=== PATIENT | female | born 1960 | race Caucasian/White ===

== ENCOUNTER 2023-10-02 18:11 | Inpatient (IN) | payer OTHER, SELFPAY ==
[2023-10-02] VITALS (34 sets, daily range): BP systolic 92–124; BP diastolic 39–89; PULSE 89–115; RESP 12–26; TEMP 37.2; O2SAT 90–100
--- NOTE | ~2023-10-02 | CT_ITS ---
EXAMINATION: CT abdomen pelvis w con DATE: 10/02/2023 20:28 INDICATION: abdominal pain TECHNIQUE: Computed tomography (CT) of the abdomen and pelvis was performed with 100 mL Omnipaque-350 intravenous contrast. Automated exposure control and iterative reconstruction technique were employe d. The dose-length product was 340.97 mGy-cm. COMPARISON: None. FINDINGS: Lower thorax: Bilateral breast implants. Calcified right lower lobe granuloma/hamartoma. Minimal biba silar scar/atelectasis. Liver: Granulomatous calcifications. Biliary/Gallbladder: Gallbladder is normal. No bile duct dilation. Pancreas: Moderate atrophy. Spleen: Granulomatous calcifications. Adrenals:No mass. Kidneys: No suspicious mass, obstructing stone, or hydronephrosis. 4 mm nonobstructing right midpole calcification. GI tract: Mild distal esophageal wall and gastric cardia/fundal wall edema. Small hiatal hernia. Shor t segment mid sigmoid wall thickening with surrounding inflammatory change and an inflamed diverticul um, with a small region of adjacent contained extracolonic gas. No definite abscess. No small or larg e bowel dilation. Normal appendix. Mesentery/Peritoneum: No ascites, mass, or free air. Retroperitoneum: No mass. Pelvis: Bladder wall stranding. Retroverted, otherwise normal-appearing uterus. Normal bilateral ovar ies. Soft Tissues: Soft tissues and body wall unremarkable. Bones: No acute osseous finding. IMPRESSION: Mild esophagitis/gastritis. Acute sigmoid diverticulitis, complicated by contained perforation. Cystitis versus reactive inflammation from the adjacent diverticulitis. No definite fistulous tract i dentified. Correlate with urinalysis. Reviewed, dictated and finalized at location K. [employer] IMPRESSION: Mild esophagitis/gastritis. Acute sigmoid diverticulitis, complicated by contained perforation. Cystitis versus reactive inflammation from the adjacent diverticulitis. No defi nite fistulous tract identified. Correlate with urinalysis.
--- NOTE | 2023-10-02 19:26 | ED.GENADULT ---
HPI - General Adult General Chief complaint: Abdominal Pain Stated complaint: abd pain Time Seen by Provider: 10/02/23 19:06 History of Present Illness HPI narrative: patient is 63-year-old female who presents emergency department with chief complaint of abdominal pain. Patient reports that she has uncomfortable feeling throughout her entire abdomen but reports that it is worse in the lower quadrants of her abdomen. The patient reports she has tried to have a bowel movement and had a normal one yesterday has taken some Colace without improvement in her symptoms. The patient reports no prior abdominal surgeries reports no prior episodes similar to this reports that she has had no dysuria denies flank. Related Data Home Medications Medication Instructions Recorded Confirmed No Home Medications 10/02/23 Allergies Allergy/AdvReac Type Severity Reaction Status Date / Time hydrocodone AdvReac Vomiting Verified 10/02/23 19:30 Review of Systems Review of Systems: A 10 system review of systems was completed on the patient and is negative except for what is stated in the HPI. Nursing and ancillary documentation was reviewed. Exam Narrative: GENERAL: Well-appearing, well-nourished, and in no acute distress. HEAD: Normocephalic, atraumatic. EYES: PERRLA and EOMI. ENT: Nares clear, no rhinorrhea or epistaxis. Mucous membranes moist. NECK: Supple. CHEST: Clear to auscultation. No respiratory distress. HEART: Regular rate and rhythm. No murmur heard. Normal peripheral pulses. ABDOMEN: Soft, Tenderness to palpation left lower quadrant, nondistended, normal active bowel sounds. EXTREMITIES: Normal range of motion. No edema. SKIN: Warm, dry, no rash. NEURO: No focal deficits. Alert and oriented x3. PSYCH: Normal mood and affect. Course Vital Signs Vital signs: Vital Signs Temperature 37.2 C 10/02/23 18:23 Pulse Rate 100 10/02/23 18:23 Respiratory Rate 16 10/02/23 18:23 Blood Pressure 119/71 10/02/23 18:23 Pulse Oximetry 98 10/02/23 18:23 Oxygen Delivery Room Air 10/02/23 18:23 Temperature 37.2 C 10/02/23 18:23 Pulse Rate 100 10/02/23 18:23 Respiratory Rate 16 10/02/23 18:23 Blood Pressure 119/71 10/02/23 18:23 Pulse Oximetry 98 10/02/23 18:23 Oxygen Delivery Room Air 10/02/23 18:23 Medical Decision Making MDM Narrative Medical decision making narrative: differential diagnosis includes diverticulitis, colitis, appendicitis, pancreatitis laboratory studies were obtained on the patient which showed a white count of 18.7 electrolytes were obtained which showed normal renal function with BUN 14 creatinine 0.7 total bilirubin was 2.1 AST and ALT were normal lipase was normal CT scan of the abdomen pelvis showed Mild esophagitis/gastritis. Acute sigmoid diverticulitis, complicated by contained perforation. Cystitis versus reactive inflammation from the adjacent diverticulitis. No definite fistulous tract identified. Correlate with urinalysis. the patient was started on Zosyn case discussed with surgery and hospitalist Vital Signs Vital Signs: Vital Signs Temperature 37.2 C 10/02/23 18:23 Pulse Rate 100 10/02/23 18:23 Respiratory Rate 16 10/02/23 18:23 Blood Pressure 119/71 10/02/23 18:23 Pulse Oximetry 98 10/02/23 18:23 Oxygen Delivery Room Air 10/02/23 18:23 Temperature 37.2 C 10/02/23 18:23 Pulse Rate 100 10/02/23 18:23 Respiratory Rate 16 10/02/23 18:23 Blood Pressure 119/71 10/02/23 18:23 Pulse Oximetry 98 10/02/23 18:23 Oxygen Delivery Room Air 10/02/23 18:23 Lab Data 10/02/23 19:29 10/02/23 19:29 Labs: Lab Results 10/02/23 Range/Units 19:29 WBC 18.7 H (4.5-10.0) K/mm3 RBC 4.10 L (4.2-5.4) M/mm3 Hgb 12.5 (12.0-15.0) g/dL Hct 37.4 (37.0-47.0) % MCV 91.2 (80-100) fl MCH 30.5 (26-34) pg MCHC 33.4 (32-36) g/dl RDW 12.2 (1
[2023-10-02] MEDS: SODIUM CHLORIDE 0.9% IV 1,000 ML 999 ML IV CONT (19:31)
[2023-10-02] MEDS: ONDANSETRON INJ 4 MG/2 ML VIAL IV PUSH ×2 (19:31→21:51)
[2023-10-02] MEDS: MORPHINE SULFATE (*CRX) 4 MG/ML INJ IV PUSH ×2 (19:33→21:51)
[2023-10-02 19:46] LABS: Basophils Percent Auto 0.2 % (0.2-1.2); Hematocrit 37.4 % (37.0-47.0); Hemoglobin 12.5 g/dL (12.0-15.0); Immature Granulocyte Absolute 0.07 K/mm3 (0.00-0.031); Immature Granulocyte Percent A 0.4 % (0-0.5); Lymphocytes Absolute Auto 0.86 K/mm3 (0.9-3.2); Lymphocytes Percent Auto 4.6 % (18.3-44.2); Mean Corpuscular HGB Conc 33.4 g/dl (32-36); Mean Corpuscular Hemoglobin 30.5 pg (26-34); Mean Corpuscular Volume 91.2 fl (80-100); Mean Platelet Volume 11.1 fl (7.4-10.4); Monocytes Absolute Auto 0.8 K/mm3 (0.1-0.6); Monocytes Percent Auto 4.2 % (2.6-8.5); Neutrophils Percent Auto 90.6 % (45.5-73.1); Platelet Count Result 226 k/mm3 (150-375); Red Cell Distribution Width 12.2 % (11.5-14.5); White Blood Count 18.7 K/mm3 (4.5-10.0)
[2023-10-02 20:01] LABS: Alanine Aminotransferase 21 U/L (6-35); Albumin Level 4.8 g/dL (3.5-5.1); Alkaline Phosphatase 85 U/L (38-126); Anion Gap 14 mmol/L (8-16); Aspartate Amino Transferase 27 U/L (14-36); Bilirubin,Total 2.1 mg/dL (0.2-1.3); Blood Urea Nitrogen 14 mg/dL (7-17); Carbon Dioxide 21 mmol/L (22-30); Chloride 101 mmol/L (98-107); Estimated CRCL calculation 63 ml/min; Estimated Glomerular Filt Rate > 60; Glucose 112 mg/dL (65-110); Lipase 26 U/L (23-300); Potassium 3.4 mmol/L (3.4-5.0); Sodium 136 mmol/L (137-145)
[2023-10-02] MEDS: PIPERACILLN/TAZ 3.375GM/NS50ML 3.375 GM/50 ML BAG IVPB (21:37)
--- NOTE | 2023-10-02 21:38 | PC.NURSE ---
blood cultures x 2 and ua collected prior to starting abx.
[2023-10-02 22:06] LABS: Appearance Urine Clear (Clear); Bacteria Urine None Seen /hpf; Bilirubin Urine Negative (Negative); Blood Urine 3+ (Negative); Color Urine Yellow (Yellow); Glucose Urine UA Negative (Negative); Ketones Urine 1+ mg/dL (Negative); Leukocyte Esterase Ur Negative LEU/UL (Negative); Need Manual Microscopic Reviewed; Nitrate Urine Negative (Negative); Non Pathogenic Casts 0-2; Protein Urine 1+ mg/dL (Negative); RBC Urine 21-50 /hpf (0-2); Squamous Epithelial Cell Urine None seen /hpf (Few); WBC Urine 0-5 /hpf
[2023-10-02 22:13] LABS: Add Urine Microscopic? YES
[2023-10-02] MEDS: SODIUM CHLORIDE 0.9% IV 1,000 ML 125 ML IV CONT (23:11)
--- NOTE | 2023-10-02 23:11 | PM.IMHP ---
H&P: HPI History of Present Illness Date/Time: 10/02/23 23:11 Chief Complaint: Abdominal pain Narrative: This is a 63-year-old female with no prior medical history presenting with abdominal pain 1 day prior to admission. [place] uncomfortable feeling throughout her entire abdomen worse in the lower quadrants and felt she was backed up as well. She drank a lot of water and was given Colace by the and she had dark loose stools. She has had no vomiting or nausea. Denies fevers or chills or chest pain or shortness of breath. She had some issue with her belly 15 years ago but was never hospitalized and can not remember what it was about. She is only ever been hospitalized when she had each of her 3 children. Review of Systems Review of Systems: All systems reviewed & are unremarkable except as noted in HPI and below (Subjective) Meds Home Medications and Allergies Home Medications Medication Instructions Recorded Confirmed Type No Home Medications 10/02/23 History Allergies Allergy/AdvReac Type Severity Reaction Status Date / Time hydrocodone AdvReac Vomiting Verified 10/02/23 19:30 Vital Signs Vital Signs - 24 hr 10/02/23 18:23 Temperature 98.9 F Pulse Rate 100 Respiratory Rate 16 Blood Pressure 119/71 Pulse Oximetry 98 Oxygen Delivery Room Air Exam Const: General: comfortable and no acute distress Other: A&O x3. Accompanied by spouse HENMT: Mouth: Yes dry mucous membranes Eyes: Pupils: Equal, round and reactive pupils present Neck: Neck: supple Resp: Effort & Inspection: normal respiratory effort Auscultation: clear to auscultation bilaterally Cardio: Rate: regular rate Rhythm: regular rhythm GI: Inspection: non-distended GI Palp: Yes Soft to palpation and No Tenderness to palpation present (GI) Auscultation: normal bowel sounds Extrem: General: no edema H&P: Results Labs Labs: Short CBC 10/02/23 Range/Units 19:29 WBC 18.7 H (4.5-10.0) K/mm3 Hgb 12.5 (12.0-15.0) g/dL Hct 37.4 (37.0-47.0) % Plt Count 226 (150-375) k/mm3 [facility] 10/02/23 19:29 Sodium 136 L Potassium 3.4 Chloride 101 Carbon Dioxide 21 L BUN 14 Creatinine 0.70 Glucose 112 H Calcium 10.0 Liver Function 10/02/23 Range/Units 19:29 Total Bilirubin 2.1 H (0.2-1.3) mg/dL AST 27 (14-36) U/L ALT 21 (6-35) U/L Alkaline Phosphatase 85 (38-126) U/L Albumin 4.8 (3.5-5.1) g/dL Urine 10/02/23 Range/Units 21:37 Urine Color Yellow (Yellow) Urine Appearance Clear (Clear) Urine pH 5.0 (5.0-9.0) Ur Specific [place] 1.020 (1.001-1.035) Urine Protein 1+ H (Negative) mg/dL Urine Glucose (UA) Negative (Negative) mg/dL Assessment and Plan Assessment and plan (1) Perforation of sigmoid colon due to diverticulitis: Code(s): K57.20 - Diverticulitis of large intestine with perforation and abscess without bleeding Status: Acute Plan This is a 63-year-old female with no prior medical history presenting with abdominal pain 1 day prior to admission. [place] uncomfortable feeling throughout her entire abdomen worse in the lower quadrants and felt she was backed up as well. She drank a lot of water and was given Colace by the and she had dark loose stools. She has had no vomiting or nausea. Denies fevers or chills or chest pain or shortness of breath. She had some issue with her belly 15 years ago but was never hospitalized and can not remember what it was about. She is only ever been hospitalized when she had each of her 3 children. In [place] ER her white count 18.7, microscopic hematuria on the UA, CT abdomen pelvis with contrast demonstrating mild esophagitis/gastritis, acute sigmoid diverticulitis complicated by contained perforation and cystitis versus reactive inflammation. She was given 1 L normal saline bolus, morphine 4 mg IV x2, Zofran 4 mg IV x2, and 1 dose of Zosyn. ---
[2023-10-02] MEDS: PANTOPRAZOLE SODIUM IV 40 MG VIAL IV PUSH (23:23)
--- NOTE | 2023-10-02 23:48 | ADMGEN ---
This patient, Ele Whitman, was admitted to 3 [facility] Surg Room 304-02. Patient/family oriented to hospital policies and general routines including ID bracelet, bed and alarms, visiting hours, pain management, procedures, bathroom and other care routines, personal items, smoking policy, room service/diet, and visiting hours. Information on how to activate the Rapid Response Team has been discussed. Patient/Family are encouraged to report perceived risks to care and to ask questions if they do not understand what they are told or what they should do.
[2023-10-03 00:20] VITALS: BP 116/63; PULSE 119; RESP 18; TEMP 36.8; O2SAT 97
[2023-10-03] MEDS: PIPERACILLN/TAZ 3.375GM/NS50ML 3.375 GM/50 ML BAG IVPB ×4 (02:25→23:24)
[2023-10-03 04:35] VITALS: BP 111/56; PULSE 87; RESP 18; TEMP 35.9; O2SAT 99
[2023-10-03] MEDS: MORPHINE SULFATE (*CRX) 4 MG/ML INJ IV PUSH (05:10)
[2023-10-03 06:28] LABS: Basophils Percent Auto 0.1 % (0.2-1.2); Eosinophils Percent Auto 0.1 % (0-4.4); Hematocrit 30.1 % (37.0-47.0); Hemoglobin 9.8 g/dL (12.0-15.0); Immature Granulocyte Absolute 0.07 K/mm3 (0.00-0.031); Immature Granulocyte Percent A 0.5 % (0-0.5); Lymphocytes Absolute Auto 0.87 K/mm3 (0.9-3.2); Lymphocytes Percent Auto 5.7 % (18.3-44.2); Mean Corpuscular HGB Conc 32.6 g/dl (32-36); Mean Corpuscular Hemoglobin 30.2 pg (26-34); Mean Corpuscular Volume 92.9 fl (80-100); Mean Platelet Volume 11.4 fl (7.4-10.4); Monocytes Absolute Auto 0.8 K/mm3 (0.1-0.6); Monocytes Percent Auto 5.3 % (2.6-8.5); Neutrophils Absolute Auto 13.5 K/mm3 (1.3-6.7); Neutrophils Percent Auto 88.3 % (45.5-73.1); Platelet Count Result 166 k/mm3 (150-375); Red Blood Count 3.24 M/mm3 (4.2-5.4); Red Cell Distribution Width 12.4 % (11.5-14.5); White Blood Count 15.3 K/mm3 (4.5-10.0)
[2023-10-03 06:43] LABS: Alanine Aminotransferase 14 U/L (6-35); Albumin Level 3.3 g/dL (3.5-5.1); Alkaline Phosphatase 72 U/L (38-126); Anion Gap 6 mmol/L (8-16); Aspartate Amino Transferase 22 U/L (14-36); Bilirubin,Total 1.9 mg/dL (0.2-1.3); Blood Urea Nitrogen 11 mg/dL (7-17); Calcium 8.2 mg/dL (8.4-10.2); Carbon Dioxide 22 mmol/L (22-30); Chloride 106 mmol/L (98-107); Estimated CRCL calculation 63 ml/min; Estimated Glomerular Filt Rate > 60; Glucose 100 mg/dL (65-110); Potassium 3.3 mmol/L (3.4-5.0); Sodium 134 mmol/L (137-145)
[2023-10-03] MEDS: SODIUM CHLORIDE 0.9% IV 1,000 ML 125 ML IV CONT (07:45)
[2023-10-03] MEDS: PANTOPRAZOLE SODIUM IV 40 MG VIAL IV PUSH (07:46)
[2023-10-03] MEDS: ENOXAPARIN 40 MG/0.4 ML SYRINGE SUB-Q (08:55)
[2023-10-03] MEDS: KCL 20 MEQ/D5/0.9% SOD CHL 1,000 ML 125 ML IV CONT ×2 (08:55→17:45)
[2023-10-03] MEDS: IBUPROFEN IV 800 MG/200 ML 800 MG/200 ML BAG 400 MG IVPB ×3 (08:55→21:21)
--- NOTE | 2023-10-03 09:44 | PM.CNGS ---
Assessment and Plan Assessment and plan (1) Perforation of sigmoid colon due to diverticulitis: Code(s): K57.20 - Diverticulitis of large intestine with perforation and abscess without bleeding Status: Acute Assessment and Plan: There is CT evidence of acute sigmoid diverticulitis with contained perforation. No organized abscess seen on CT. WBC trending down this morning. No diffuse peritoneal signs on exam. I discussed the pathophysiology of diverticulitis along with plan of care with the patient. At this time, we would recommend to continue conservative management with IV antibiotics, bowel rest, IV fluids, and analgesics. Potassium low at 3.3 this morning, and IV fluids switched to have 20 meq KCL. I discussed with the patient that typically this improves with IV antibiotics, but we will continue to monitor with labs and serial abdominal exams. Plan I have discussed the patient's case and plan of care with Dr. Orr. Thank you for allowing us to see the patient in consultation and we will continue to follow along with you. History of Present Illness Consult details Consult date: 10/03/23 Reason for consult: other Requesting physician: Juan Pablo Oliva MD Narrative: This is a 63-year-old woman who we have been asked to see for diverticulitis with perforation. She reports an onset of lower abdominal pain starting two days ago. She reports associated bloating and feels swollen in her lower abdomen. She had nausea yesterday, but no vomiting. No fever or chills. No changes in her bowels. Due to her persistent pain, she presented to the ER for evaluation. She was tachycardic in the ER with her heart rate as high as 115, but otherwise afebrile and hemodynamically stable. Labs showed a WBC count of 18,700. Blood cultures drawn. CT scan of the abdomen and pelvis showed acute sigmoid diverticulitis with contained perforation and no organized abscess. She was admitted to the Hospitalist service and started on IV Zosyn. She is now seen on the medical floor. She reports her pain has improved and she is mostly uncomfortable due to her bloating. WBC improved today to 15,300. Tachycardia improved and remains afebrile. She denies a history of diverticulitis. No previous abdominal surgeries. She had a normal Cologuard test a few years ago, but denies ever having a colonoscopy. Review of Systems Review of Systems: All systems reviewed & are unremarkable except as noted in HPI and below PMFSH Family History Family History Other Patient denies significant medical history Social History Social History Smoking status: Never smoker Alcohol intake: never Substance use: never Do You Feel Safe in your Home?: Yes Lack of Transportation: No Lack of Food: Never True Current Housing: I Have Housing Concerned About Future Housing: No Difficulty Paying Gas/Electric Bills: No Difficulty Paying for Meds: No Currently Unemployed: No Education: High School Diploma/GED Difficulty w/ Childcare or Family Care: No Spiritual care concerns: No Meds Home Medications and Allergies Home Medications Medication Instructions Recorded Confirmed Type No Home Medications 10/02/23 10/02/23 History Allergies Allergy/AdvReac Type Severity Reaction Status Date / Time hydrocodone AdvReac Vomiting Verified 10/02/23 19:30 Vital Signs Vital Signs - 24 hr 10/02/23 18:23 10/02/23 23:30 10/02/23 18:53 Temperature 98.9 F Pulse Rate 100 90 92 Respiratory Rate 16 18 16 Blood Pressure 119/71 116/67 Pulse Oximetry 98 98 100 Oxygen Delivery Room Air 10/02/23 19:00 10/02/23 19:15 10/02/23 19:20 Temperature Pulse Rate 93 93 101 H Respiratory Rate 16 15 21 H Blood Pressure 99/89 L Pulse Oximetry 99 100 99 Oxygen Delivery 10/02/23 19:30 10/02/23 19:31 10/02/23 19:45 Temperature
--- NOTE | 2023-10-03 10:00 | PM.IMPN ---
Progress Note: A&P Assessment and Plan (1) Perforation of sigmoid colon due to diverticulitis: Code(s): K57.20 - Diverticulitis of large intestine with perforation and abscess without bleeding Status: Acute Assessment and Plan: Patient presented with lower quadrant abdominal pain; she has had no prior abdominal surgeries and has no significnat past medical history CT a/p showed acute sigmoid diverticulitis with contained perforation. No organized abscess seen on CT Surgery consulted, we appreciate their recommendations WBC trending down this morning Follow blood culture She has no peritoneal signs on exam Continue IV Zosyn Continue IV PPI NPO IV fluids Pain control as necessary Continue to monitor labs; Replete electrolytes as needed Plan FEN:? NPO except chips, normal saline continuous GI prophylaxis:? Protonix 40 mg IV q.day DVT prophylaxis:? SCDs Lines:? Peripheral IV Code Status:? Full code Subjective Date/time seen: 10/03/23 10:00 Interval history: Patient is resting comfortably in bed this morning. She endorses lower quadrant abdominal pain, worse on the RLQ and abdominal swelling/bloating in the lower quadrants. Denies nausea, vomiting, chest pain, shortness of breath, leg swelling, or urinary symptoms. Exam Narrative: GENERAL: Well-appearing, well-nourished, and in no acute distress. HEAD: Normocephalic, atraumatic. EYES: PERRLA and EOMI. ENT: Nares clear, no rhinorrhea or epistaxis. Mucous membranes moist. NECK: Supple. CHEST: Clear to auscultation. No respiratory distress. HEART: Regular rate and rhythm. No murmur heard. Normal peripheral pulses. ABDOMEN: Soft, Tenderness to palpation left and right lower quadrant (worse on the right), nondistended, normal active bowel sounds. EXTREMITIES: Normal range of motion. No edema. SKIN: Warm, dry, no rash. NEURO: No focal deficits. Alert and oriented x3. PSYCH: Normal mood and affect. Objective Data Vital Signs Vital Signs: Vital Signs - 24 hr 10/02/23 18:23 10/02/23 23:30 10/02/23 18:53 Temperature 98.9 F Pulse Rate 100 90 92 Respiratory Rate 16 18 16 Blood Pressure 119/71 116/67 Pulse Oximetry 98 98 100 Oxygen Delivery Room Air 10/02/23 19:00 10/02/23 19:15 10/02/23 19:20 Temperature Pulse Rate 93 93 101 H Respiratory Rate 16 15 21 H Blood Pressure 99/89 L Pulse Oximetry 99 100 99 Oxygen Delivery 10/02/23 19:30 10/02/23 19:31 10/02/23 19:45 Temperature Pulse Rate 96 92 89 Respiratory Rate 19 16 21 H Blood Pressure 124/62 112/74 Pulse Oximetry 100 100 99 Oxygen Delivery 10/02/23 19:46 10/02/23 20:00 10/02/23 20:01 Temperature Pulse Rate 93 90 90 Respiratory Rate 20 13 14 Blood Pressure 120/39 L Pulse Oximetry 97 100 97 Oxygen Delivery 10/02/23 20:13 10/02/23 20:28 10/02/23 20:30 Temperature Pulse Rate 96 115 H 105 H Respiratory Rate 19 19 18 Blood Pressure 114/54 L Pulse Oximetry 98 98 99 Oxygen Delivery 10/02/23 20:45 10/02/23 21:00 10/02/23 21:15 Temperature Pulse Rate 108 H 108 H 109 H Respiratory Rate 26 H 23 H 17 Blood Pressure Pulse Oximetry 98 95 Oxygen Delivery 10/02/23 21:37 10/02/23 21:42 10/02/23 21:45 Temperature Pulse Rate 105 H 110 H 100 Respiratory Rate 26 H 15 19 Blood Pressure 112/40 L 116/57 L Pulse Oximetry Oxygen Delivery 10/02/23 21:46 10/02/23 22:00 10/02/23 22:01 Temperature Pulse Rate 102 H 107 H 104 H Respiratory Rate 17 24 H 22 H Blood Pressure 98/45 L Pulse Oximetry 96 96 Oxygen Delivery 10/02/23 22:15 10/02/23 22:16 10/02/23 22:30 Temperature Pulse Rate 103 H 106 H 103 H Respiratory Rate 14 14 18 Blood Pressure 92/57 L 112/60 Pulse Oximetry 97 93 90 Oxygen Delivery 10/02/23 22:31 10/02/23 22:45 10/02/23 22:46 Temperature Pulse Rate 105 H 102 H 102 H Respiratory Rate 20 22 H 23 H Blood Pressure 108/59 L Pulse Oximetry 90 93 95 Oxygen D
[2023-10-03 14:00] VITALS: BP 92/49; PULSE 64; RESP 18; TEMP 36.3; O2SAT 100
[2023-10-03 16:43] VITALS: BP 98/52
[2023-10-03 17:52] VITALS: BP 96/60
[2023-10-03 20:40] VITALS: BP 96/55; PULSE 80; RESP 20; TEMP 36.7; O2SAT 99
[2023-10-04] VITALS (7 sets, daily range): BP systolic 92–117; BP diastolic 50–67; PULSE 57–68; RESP 14–20; TEMP 36.1–36.9; O2SAT 98–100
[2023-10-04] MEDS: IBUPROFEN IV 800 MG/200 ML 800 MG/200 ML BAG 400 MG IVPB ×4 (01:13→20:40)
[2023-10-04] MEDS: PIPERACILLN/TAZ 3.375GM/NS50ML 3.375 GM/50 ML BAG IVPB ×4 (02:53→22:54)
[2023-10-04] MEDS: KCL 20 MEQ/D5/0.9% SOD CHL 1,000 ML 125 ML IV CONT ×2 (06:21→13:39)
[2023-10-04] MEDS: MORPHINE SULFATE (*CRX) 2 MG/ML INJ IV PUSH (06:26)
--- NOTE | 2023-10-04 06:55 | PC.NURSE ---
Pt woke up this morning with c/o SOB. Vitals were obtained and stable. Pt was given 2mg Morphine. Pt was transferred to chair by bedside with daughter. Continued monitoring.
[2023-10-04 07:08] LABS: Hematocrit 28.2 % (37.0-47.0); Hemoglobin 8.8 g/dL (12.0-15.0); Mean Corpuscular HGB Conc 31.2 g/dl (32-36); Mean Corpuscular Hemoglobin 29.8 pg (26-34); Mean Corpuscular Volume 95.6 fl (80-100); Mean Platelet Volume 11.4 fl (7.4-10.4); Platelet Count Result 158 k/mm3 (150-375); Red Blood Count 2.95 M/mm3 (4.2-5.4); Red Cell Distribution Width 12.4 % (11.5-14.5); White Blood Count 6.5 K/mm3 (4.5-10.0)
[2023-10-04 07:28] LABS: Anion Gap 5 mmol/L (8-16); Blood Urea Nitrogen 9 mg/dL (7-17); Carbon Dioxide 22 mmol/L (22-30); Chloride 113 mmol/L (98-107); Estimated CRCL calculation 63 ml/min; Estimated Glomerular Filt Rate > 60; Glucose 127 mg/dL (65-110); Potassium 3.6 mmol/L (3.4-5.0); Sodium 140 mmol/L (137-145)
[2023-10-04] MEDS: PANTOPRAZOLE SODIUM IV 40 MG VIAL IV PUSH (10:00)
[2023-10-04] MEDS: ENOXAPARIN 40 MG/0.4 ML SYRINGE SUB-Q (10:00)
--- NOTE | 2023-10-04 11:15 | PM.IMPN ---
Progress Note: A&P Assessment and Plan (1) Perforation of sigmoid colon due to diverticulitis: Code(s): K57.20 - Diverticulitis of large intestine with perforation and abscess without bleeding <Sue Murphy, Student - Last Filed: 10/04/23 12:16> Status: Acute <Sue Murphy, Student - Last Filed: 10/04/23 12:16> Assessment and Plan: Patient presented with lower quadrant abdominal pain; she has had no prior abdominal surgeries and has no significant past medical history CT a/p showed acute sigmoid diverticulitis with contained perforation. No organized abscess seen on CT Surgery consulted, we appreciate their recommendations WBC trending down this morning Prelim blood culture shows NGTD She has no peritoneal signs on exam Continue IV Zosyn and IV PPI Start clear liquid diet with IV fluids Pain control as necessary PT/OT Patient is +2700 on fluid balance on 3/4 and receiving IV fluids from medications and hydration, it does not seem she is urinating appropriately; order bladder scan Follow-up with general surgery recs <Sue Murphy, Student - Last Filed: 10/04/23 12:16> Patient presented with lower quadrant abdominal pain; she has had no prior abdominal surgeries and has no significant past medical history CT a/p showed acute sigmoid diverticulitis with contained perforation. No organized abscess seen on CT Surgery consulted, we appreciate their recommendations WBC trending down this morning Prelim blood culture shows NGTD She has no peritoneal signs on exam Continue IV Zosyn and IV PPI Start clear liquid diet with IV fluids Pain control as necessary PT/OT Patient is +2700 on fluid balance on 3/4 and receiving IV fluids from medications and hydration, it does not seem she is urinating appropriately; order bladder scan Follow-up with general surgery recs watch cbc and BMP <Allison Schwartz MD - Last Filed: 10/04/23 12:46> (2) Memory impairment: Code(s): R41.3 - Other amnesia <Sue Murphy, Student - Last Filed: 10/04/23 12:16> Status: Chronic <Sue Murphy, Student - Last Filed: 10/04/23 12:16> Assessment and Plan: Order delirium panel b12 tsh folate thiamine, esr Can consult Neurology for memory impairment <Allison Schwartz MD - Last Filed: 10/04/23 12:46> Assessment and Plan: FEN:? NPO except chips, normal saline continuous GI prophylaxis:? Protonix 40 mg IV q.day DVT prophylaxis:? SCDs Lines:? Peripheral IV Code Status:? Full code <Sue Murphy, Student - Last Filed: 10/04/23 12:16> Subjective Date/time seen: 10/04/23 11:15 <Sue Murphy, Student - Last Filed: 10/04/23 12:16> Interval history: Patient sitting up in her chair this morning. She reports sudden increase in abdominal pressure and swelling that is worse when she is laying down. States it feels like there is too much fluid in her abdomen and it has moved up toward her chest so it difficult to catch her breath when she was laying flat. Her breathing and pain improved when she sat up in her chair. She denies nausea or vomiting. Patient also denies chest pain or urinary symptoms. <Sue Murphy, Student - Last Filed: 10/04/23 12:16> Patient sitting up in her chair this morning. She reports sudden increase in abdominal pressure and swelling that is worse when she is laying down. States it feels like there is too much fluid in her abdomen and it has moved up toward her chest so it difficult to catch her breath when she was laying flat. Her breathing and pain improved when she sat up in her chair. She denies nausea or vomiting. Patient also denies chest pain or urinary symptoms. Pt admitted for diverticulitis with perforation ct shows no abscess, pt having some abdominal pain and bloating improved since admission. Family also concerned about his memory declining over past few months. Pt seen by surgery cont
--- NOTE | 2023-10-04 12:14 | PM.PNGS ---
Progress Note: A&P Assessment and Plan (1) Perforation of sigmoid colon due to diverticulitis: Code(s): K57.20 - Diverticulitis of large intestine with perforation and abscess without bleeding Status: Acute Assessment and Plan: Patient has gotten quite a bit more anemic relative to her admission CBC. H&H down to 8.8 and 28.2. Initially it was 12.5 and 37.4. WBC now down in normal range but expect some of this is due to dilutional factors as well. Discussed with the family and patient that there is no evidence that she is bleeding and the drop in hemoglobin and hematocrit are most likely due to the IV fluids she has received and dilutional FX. Overall, she is less tender, her white blood cell count is decreased, she has been afebrile. These are all signs she is improving and I explained that to her and her family. Continue NPO except coffee and popsicles, ice chips. Possibly start clear liquid diet tomorrow with continues to improve. Continue ambulation which she has been doing. (2) Memory impairment: Code(s): R41.3 - Other amnesia Status: Chronic Assessment and Plan: Patient's family very concerned about this and says patient will not admitted or discuss it. Will discuss with Dr. Schwartz, hospitalist. Subjective Subjective Date/Time Seen: 10/04/23 12:14 Patient reports: still having pain (Possibly a little less than yesterday), voiding w/o difficulty, no bowel movement and afebrile Interval history: Main patient complaint is ?swelling? of the abdomen which started in the pubic area and went all the way up to her lower chest. She notes that this is usually very flat but now feels very thickened. Review of Systems Review of Systems: All systems reviewed & are unremarkable except as noted in HPI and below (HPI) Constitutional: Constitutional: Reports as per HPI, Denies anorexia, Denies chills, Reports fatigue, Denies fever(s) and Reports lethargy Cardiovascular: Cardiovascular: Denies chest pain, Denies rapid heart rate, Denies leg edema and Reports slow heart rate Respiratory: Respiratory: Denies chest congestion, Denies cough and Denies dyspnea Gastrointestinal: Gastrointestinal: Reports abdominal pain, Reports bloating (More like swelling or edema), Reports constipation, Denies nausea and Denies vomiting Neurologic: Reports memory loss (Family tells me that for the last 2 years patient has had noticeable loss ) Psychiatric: Psychiatric: Denies confusion Hematologic/Lymphatic: Hematologic/Lymphatic: Denies easy bleeding and Denies easy bruising Exam Const: General: comfortable and no acute distress Orientation/consciousness: patient oriented x3 GI: Inspection: normal to inspection, non-distended, scaphoid and scar GI Palp: Yes Soft to palpation, Yes Tenderness to palpation present (GI) (Both lower quadrants, equal tenderness, less than yesterday) and Yes Guarding due to palpation present (GI) Auscultation: Hypoactive bowel sounds present Neuro: General: patient oriented x3 and no focal motor deficits Extrem: General: no calf tenderness and no edema Psych: Speech and movement: Clear speech present Affect: Blunted affect present Attitude: cooperative Thought process: Other thought process findings present (Forgetful, dulled) Thought content: Yes Normal thought content present Insight: Good insight present (Psych) Judgement: Good judgement present (Psych) Objective Data Vital Signs Vital Signs: Vital Signs - 24 hr 10/03/23 14:00 10/03/23 16:43 10/03/23 17:52 Temperature 36.3 C L Pulse Rate 64 Respiratory Rate 18 Blood Pressure 92/49 L 98/52 L 96/60 L Pulse Oximetry 100 Oxygen Delivery 10/03/23 20:00 10/03/23 20:40 10/04/23 05:00 Temperature 36.7 C 36.1 C L Pulse Rate 80 61 Respiratory Rate 20 18 Blood Pressure 96/55 L 92/50 L Pulse Oximetry 99 98 Oxygen Delivery Room Air 10/04/23 06:52 10/04/23 09:00 10/04/23 08:00 Temperature 36.9
[2023-10-05] MEDS: IBUPROFEN IV 800 MG/200 ML 800 MG/200 ML BAG 400 MG IVPB ×4 (01:56→20:34)
[2023-10-05] MEDS: PIPERACILLN/TAZ 3.375GM/NS50ML 3.375 GM/50 ML BAG IVPB ×4 (03:39→20:37)
[2023-10-05 04:55] VITALS: BP 110/62; PULSE 54; RESP 20; TEMP 36.8; O2SAT 96
[2023-10-05] MEDS: KCL 20 MEQ/D5/0.9% SOD CHL 1,000 ML 125 ML IV CONT (06:30)
[2023-10-05 06:34] LABS: Hematocrit 31.9 % (37.0-47.0); Hemoglobin 10.1 g/dL (12.0-15.0); Mean Corpuscular HGB Conc 31.7 g/dl (32-36); Mean Corpuscular Hemoglobin 30.3 pg (26-34); Mean Corpuscular Volume 95.8 fl (80-100); Mean Platelet Volume 11.9 fl (7.4-10.4); Platelet Count Result 212 k/mm3 (150-375); Red Blood Count 3.33 M/mm3 (4.2-5.4); Red Cell Distribution Width 12.3 % (11.5-14.5); White Blood Count 6.1 K/mm3 (4.5-10.0)
[2023-10-05 07:06] LABS: Anion Gap 9 mmol/L (8-16); Blood Urea Nitrogen 6 mg/dL (7-17); Calcium 8.7 mg/dL (8.4-10.2); Carbon Dioxide 21 mmol/L (22-30); Chloride 112 mmol/L (98-107); Estimated CRCL calculation 63 ml/min; Estimated Glomerular Filt Rate > 60; Glucose 112 mg/dL (65-110); Potassium 3.2 mmol/L (3.4-5.0); Sodium 142 mmol/L (137-145)
[2023-10-05 07:37] LABS: Erythrocyte Sedimentation Rate > 140 mm/hr (0-20)
[2023-10-05 08:00] VITALS: PULSE 61; RESP 18; O2SAT 100
[2023-10-05 08:23] LABS: Vitamin B12 > 1000.0 pg/mL (239-931)
[2023-10-05] MEDS: ENOXAPARIN 40 MG/0.4 ML SYRINGE SUB-Q (08:40)
[2023-10-05] MEDS: PANTOPRAZOLE SODIUM IV 40 MG VIAL IV PUSH (08:40)
[2023-10-05 09:25] LABS: Folic Acid 18.5 ng/mL (2.76->20)
--- NOTE | 2023-10-05 11:17 | PM.IMPN ---
Progress Note: A&P Assessment and Plan (1) Memory impairment: Code(s): R41.3 - Other amnesia Status: Chronic Assessment and Plan: Order delirium panel b12 tsh folate thiamine, esr Can consult Neurology for memory impairment TSh is high will start low dose levothyroxine (2) Perforation of sigmoid colon due to diverticulitis: Code(s): K57.20 - Diverticulitis of large intestine with perforation and abscess without bleeding Status: Acute Assessment and Plan: Patient presented with lower quadrant abdominal pain; she has had no prior abdominal surgeries and has no significant past medical history CT a/p showed acute sigmoid diverticulitis with contained perforation. No organized abscess seen on CT Surgery consulted, continue conservative management WBC is NL now Prelim blood culture shows NGTD She has no peritoneal signs on exam Continue IV Zosyn and IV PPI Pain control as necessary PT/OT Pt not tolerating ice chips well continue to watch Advance diet tomorrow watch cbc and BMP Nutrition consulted for dietary advice Subjective Date/time seen: 10/05/23 11:17 Interval history: Patient sitting up in her chair this morning. She reports sudden increase in abdominal pressure and swelling that is worse when she is laying down. States it feels like there is too much fluid in her abdomen and it has moved up toward her chest so it difficult to catch her breath when she was laying flat. Her breathing and pain improved when she sat up in her chair. She denies nausea or vomiting. Patient also denies chest pain or urinary symptoms. Pt admitted for diverticulitis with perforation ct shows no abscess, pt having some abdominal pain and bloating improved since admission. Family also concerned about his memory declining over past few months. Pt seen by surgery continue current care, conservative management with IV fluids and IV abx. Pt still on ice chips and popsicles having some abdominal discomfit with this Review of Systems Review of Systems: Abdominal discomfort Objective Data Vital Signs Vital Signs: Vital Signs - 24 hr 10/04/23 14:00 10/04/23 20:50 10/04/23 20:00 Temperature 36.5 C 36.2 C L Pulse Rate 68 57 L 68 Respiratory Rate 18 20 18 Blood Pressure 104/53 L 117/67 Pulse Oximetry 98 100 98 Oxygen Delivery Room Air 10/05/23 04:55 Temperature 36.8 C Pulse Rate 54 L Respiratory Rate 20 Blood Pressure 110/62 Pulse Oximetry 96 Oxygen Delivery Intake/Output Intake/Output: Intake & Output 10/02/23 10/03/23 10/04/23 10/05/23 23:59 23:59 23:59 23:59 Intake Total 1050 2900 4220 440 Output Total 200 100 Balance 1050 2700 4120 440 Meds/Results Medications: Active Medications Generic Name Dose Route Start Last Admin Trade Name Freq PRN Reason Stop Dose Admin Acetaminophen 650 mg 10/02/23 22:03 Acetaminophen 325 Mg Tablet PO Q4H PRN Mild Pain (1-3) or Fever Enoxaparin Sodium 40 mg 10/03/23 09:00 10/05/23 08:40 Enoxaparin 40 Mg/0.4 Ml Syringe SUB-Q 40 mg DAILY GUSTAVO Administration Piperacillin/Tazobactam/Dextrose 3.375 gm in 50 mls @ 100 mls/hr 10/03/23 03:00 10/05/23 06:19 Zosyn 3.375 Gm/Ns 50 Ml IVPB Infused Q6H GUSTAVO Infusion Ibuprofen 800 mg in 200 mls @ 400 mls/hr 10/03/23 08:00 10/05/23 08:40 Caldolor 800 Mg/200 Ml IVPB 400 mls/hr Q6H GUSTAVO Administration Potassium Chloride/Dextrose/Sod Cl 1,000 mls @ 80 mls/hr 10/03/23 08:10 10/05/23 06:30 Kcl 20 Meq/D5/0.9% Sod Chl IV CONT 125 mls/hr .[id number] GUSTAVO Administration Morphine Sulfate 4 mg 10/02/23 22:03 10/03/23 05:10 Morphine Sulfate (*Crx) 4 Mg/Ml Inj IV PUSH 4 mg Q2H PRN Administration Pain Rated 7-10 Morphine Sulfate 2 mg 10/03/23 08:05 10/04/23 06:26 Morphine Sulfate (*Crx) 2 Mg/Ml Inj IV PUSH 2 mg Q2H PRN Administration Pain Rated 4-6 Ondansetron HCl 4 mg 10/02/23 22:03 Ondansetron Inj 4 Mg/
--- NOTE | 2023-10-05 12:08 | PM.PNGS ---
Progress Note: A&P Assessment and Plan (1) Perforation of sigmoid colon due to diverticulitis: Code(s): K57.20 - Diverticulitis of large intestine with perforation and abscess without bleeding Status: Acute Assessment and Plan: Clinically improving. Abdominal pain significantly improved and no tenderness on exam today. WBC normal. H/H trended down after admission significantly to 8.8 yesterday, but is up at 10.1 today. Likely related to dilutional factors. Still no evidence of bleeding. Will start her on a clear liquid diet. Continue IV antibiotics. Repeat labs again tomorrow. (2) Memory impairment: Code(s): R41.3 - Other amnesia Status: Chronic Assessment and Plan: Concerns voiced from family yesterday, no family at the bedside today. Plan I have discussed the patient's case and plan of care with Dr. Orr. Subjective Subjective Date/Time Seen: 10/05/23 12:08 Patient reports: feels better, flatus, bowel movement and afebrile Interval history: Patient feeling better today. She denies any abdominal pain this morning, but still feels very bloated which is uncomfortable. No nausea or vomiting. She did have one loose BM today. No other complaints at this time. Exam Const: General: comfortable and no acute distress Orientation/consciousness: patient oriented x3 GI: Inspection: non-distended GI Palp: Yes Soft to palpation, No Tenderness to palpation present (GI), No Guarding due to palpation present (GI) and No Rebound tenderness present Auscultation: normal bowel sounds Objective Data Vital Signs Vital Signs: Vital Signs - 24 hr 10/04/23 14:00 10/04/23 20:50 10/04/23 20:00 Temperature 97.7 F 97.1 F L Pulse Rate 68 57 L 68 Respiratory Rate 18 20 18 Blood Pressure 104/53 L 117/67 Pulse Oximetry 98 100 98 Oxygen Delivery Room Air 10/05/23 04:55 Temperature 98.2 F Pulse Rate 54 L Respiratory Rate 20 Blood Pressure 110/62 Pulse Oximetry 96 Oxygen Delivery Intake/Output Intake/Output: Intake & Output 10/02/23 10/03/23 10/04/23 10/05/23 23:59 23:59 23:59 23:59 Intake Total 1050 2900 4220 440 Output Total 200 100 Balance 1050 2700 4120 440 Meds/Results Medications: Active Medications Generic Name Dose Route Start Last Admin Trade Name Freq PRN Reason Stop Dose Admin Acetaminophen 650 mg 10/02/23 22:03 Acetaminophen 325 Mg Tablet PO Q4H PRN Mild Pain (1-3) or Fever Enoxaparin Sodium 40 mg 10/03/23 09:00 10/05/23 08:40 Enoxaparin 40 Mg/0.4 Ml Syringe SUB-Q 40 mg DAILY GUSTAVO Administration Piperacillin/Tazobactam/Dextrose 3.375 gm in 50 mls @ 100 mls/hr 10/03/23 03:00 10/05/23 09:45 Zosyn 3.375 Gm/Ns 50 Ml IVPB 100 mls/hr Q6H GUSTAVO Administration Ibuprofen 800 mg in 200 mls @ 400 mls/hr 10/03/23 08:00 10/05/23 08:40 Caldolor 800 Mg/200 Ml IVPB 400 mls/hr Q6H GUSTAVO Administration Potassium Chloride/Dextrose/Sod Cl 1,000 mls @ 80 mls/hr 10/03/23 08:10 10/05/23 06:30 Kcl 20 Meq/D5/0.9% Sod Chl IV CONT 125 mls/hr .[id number] GUSTAVO Administration Levothyroxine Sodium 25 mcg 10/06/23 06:30 Levothyroxine Sodium 25 Mcg Tablet PO DAILY@0630 [facility] Morphine Sulfate 4 mg 10/02/23 22:03 10/03/23 05:10 Morphine Sulfate (*Crx) 4 Mg/Ml Inj IV PUSH 4 mg Q2H PRN Administration Pain Rated 7-10 Morphine Sulfate 2 mg 10/03/23 08:05 10/04/23 06:26 Morphine Sulfate (*Crx) 2 Mg/Ml Inj IV PUSH 2 mg Q2H PRN Administration Pain Rated 4-6 Ondansetron HCl 4 mg 10/02/23 22:03 Ondansetron Inj 4 Mg/2 Ml Vial IV PUSH Q4H PRN Nausea Pantoprazole Sodium 40 mg 10/02/23 23:10 10/05/23 08:40 Pantoprazole Sodium Iv 40 Mg Vial IV PUSH 40 mg DAILY GUSTAVO Administration Potassium Chloride 40 meq 10/06/23 09:00 Potassium Chloride 20 Meq Packet (For Liquid) PO DAILY [facility] Radiology Results: ITS Impressions Abdomen/Pelvis CT 10/02/23 20:43 IMPRESSION: Mil
--- NOTE | 2023-10-05 12:56 | P.CONNEU_ITS ---
Consult date: 10/05/23 HPI: Ele Whitman is a 63 year old female admitted to the hospital through the emergency room with the complaints of abdominal pain particularly more so in the lower quadrants and not relieved by the BM an old with no history of the previous surgeries subsequently diagnosed to have the perforation of the sigmoid colon due to diverticulitis of the large intestine neuro consultation has been obtained for the memory dysfunction, pertinent investigations include only the CBC with hemoglobin of 10.1 WBC 6.1 and a platelet count of 212 with MCH of 30.3 BMP with low potassium 3.2 and UA negative she has not had any neurological investigation otherwise except B12 and folate levels have been ordered along with the TSH [facility] Family History Family History Other Patient denies significant medical history Social History Social History Smoking status: Never smoker Alcohol intake: never Substance use: never Do You Feel Safe in your Home?: Yes Lack of Transportation: No Lack of Food: Never True Current Housing: I Have Housing Concerned About Future Housing: No Difficulty Paying Gas/Electric Bills: No Difficulty Paying for Meds: No Currently Unemployed: No Education: High School Diploma/GED Difficulty w/ Childcare or Family Care: No Spiritual care concerns: No Meds Home Medications and Allergies Home Medications Medication Instructions Recorded Confirmed Type No Home Medications 10/02/23 10/02/23 History Allergies Allergy/AdvReac Type Severity Reaction Status Date / Time hydrocodone AdvReac Vomiting Verified 10/02/23 19:30 Vital Signs Vital Signs - 24 hr 10/04/23 14:00 10/04/23 20:50 10/04/23 20:00 Temperature 36.5 C 36.2 C L Pulse Rate 68 57 L 68 Respiratory Rate 18 20 18 Blood Pressure 104/53 L 117/67 Pulse Oximetry 98 100 98 Oxygen Delivery Room Air 10/05/23 04:55 Temperature 36.8 C Pulse Rate 54 L Respiratory Rate 20 Blood Pressure 110/62 Pulse Oximetry 96 Oxygen Delivery Results Labs 10/05/23 05:49 10/05/23 05:49 Labs: Short CBC 10/05/23 Range/Units 05:49 WBC 6.1 (4.5-10.0) K/mm3 Hgb 10.1 L (12.0-15.0) g/dL Hct 31.9 L (37.0-47.0) % Plt Count 212 (150-375) k/mm3 [facility] 10/05/23 05:49 Sodium 142 Potassium 3.2 L Chloride 112 H Carbon Dioxide 21 L BUN 6 L Creatinine 0.70 Glucose 112 H Calcium 8.7
[2023-10-05 14:00] VITALS: BP 118/61; PULSE 61; RESP 18; TEMP 36.6; O2SAT 100
[2023-10-05 21:02] VITALS: BP 135/66; PULSE 57; RESP 20; TEMP 36.8; O2SAT 99
[2023-10-06] MEDS: KCL 20 MEQ/D5/0.9% SOD CHL 1,000 ML 125 ML IV CONT (01:54)
[2023-10-06] MEDS: IBUPROFEN IV 800 MG/200 ML 800 MG/200 ML BAG 400 MG IVPB (01:55)
[2023-10-06] MEDS: PIPERACILLN/TAZ 3.375GM/NS50ML 3.375 GM/50 ML BAG IVPB ×4 (03:51→22:23)
[2023-10-06 05:20] VITALS: BP 141/71; PULSE 57; RESP 20; TEMP 36.9; O2SAT 96
[2023-10-06] MEDS: LEVOTHYROXINE SODIUM 25 MCG TABLET PO (06:05)
[2023-10-06 06:53] LABS: Hematocrit 28.5 % (37.0-47.0); Hemoglobin 9.3 g/dL (12.0-15.0); Mean Corpuscular HGB Conc 32.6 g/dl (32-36); Mean Corpuscular Hemoglobin 30.4 pg (26-34); Mean Corpuscular Volume 93.1 fl (80-100); Mean Platelet Volume 11.9 fl (7.4-10.4); Platelet Count Result 193 k/mm3 (150-375); Red Blood Count 3.06 M/mm3 (4.2-5.4); Red Cell Distribution Width 12.4 % (11.5-14.5); White Blood Count 4.9 K/mm3 (4.5-10.0)
[2023-10-06 07:07] LABS: Anion Gap 4 mmol/L (8-16); Blood Urea Nitrogen 4 mg/dL (7-17); Calcium 8.5 mg/dL (8.4-10.2); Carbon Dioxide 23 mmol/L (22-30); Chloride 113 mmol/L (98-107); Estimated CRCL calculation 63 ml/min; Estimated Glomerular Filt Rate > 60; Glucose 106 mg/dL (65-110); Potassium 3.5 mmol/L (3.4-5.0); Sodium 140 mmol/L (137-145)
--- NOTE | 2023-10-06 08:26 | PM.PNGS ---
Progress Note: A&P Assessment and Plan (1) Perforation of sigmoid colon due to diverticulitis: Code(s): K57.20 - Diverticulitis of large intestine with perforation and abscess without bleeding Status: Acute Assessment and Plan: Doing much better. Will advance to low-fiber diet. Saline lock IV. Increase ambulation. Hopefully patient can be discharged tomorrow. (2) Memory impairment: Code(s): R41.3 - Other amnesia Status: Chronic Assessment and Plan: TSH elevated. Explained to patient and yesterday that this could be the problem with her memory issues. Already started on thyroid supplement per Dr. Schwartz. Subjective Subjective Date/Time Seen: 10/06/23 08:26 Patient reports: feels better, pain is less, tolerating liquids well, voiding w/o difficulty, bowel movement and afebrile Review of Systems Review of Systems: All systems reviewed & are unremarkable except as noted in HPI and below (HPI) Exam Const: General: comfortable and no acute distress Orientation/consciousness: patient oriented x3 GI: Inspection: Abdominal wall edema and non-distended GI Palp: Yes Soft to palpation, Yes Tenderness to palpation present (GI) (Nearly gone), No Guarding due to palpation present (GI), No Hernia present, No Palpable mass present and No Rebound tenderness present Auscultation: normal bowel sounds Neuro: General: patient oriented x3 and no focal motor deficits Extrem: General: no calf tenderness and no edema Psych: Affect: normal affect Insight: Good insight present (Psych) Judgement: Good judgement present (Psych) Objective Data Vital Signs Vital Signs: Vital Signs - 24 hr 10/05/23 14:00 10/05/23 20:00 10/05/23 21:02 Temperature 36.6 C 36.8 C Pulse Rate 61 57 L Respiratory Rate 18 20 Blood Pressure 118/61 135/66 Pulse Oximetry 100 99 Oxygen Delivery Room Air 10/06/23 05:20 Temperature 36.9 C Pulse Rate 57 L Respiratory Rate 20 Blood Pressure 141/71 H Pulse Oximetry 96 Oxygen Delivery Intake/Output Intake/Output: Intake & Output 10/03/23 10/04/23 10/05/23 10/06/23 23:59 23:59 23:59 23:59 Intake Total 2900 4220 2548 100 Output Total 200 100 Balance 2700 4120 2548 100 Meds/Results Medications: Active Medications Generic Name Dose Route Start Last Admin Trade Name Freq PRN Reason Stop Dose Admin Enoxaparin Sodium 40 mg 10/03/23 09:00 10/05/23 08:40 Enoxaparin 40 Mg/0.4 Ml Syringe SUB-Q 40 mg DAILY GUSTAVO Administration Famotidine 20 mg 10/06/23 09:00 Famotidine 20 Mg Tablet PO Q12HR GUSTAVO Piperacillin/Tazobactam/Dextrose 3.375 gm in 50 mls @ 100 mls/hr 10/03/23 03:00 10/06/23 03:51 Zosyn 3.375 Gm/Ns 50 Ml IVPB 100 mls/hr Q6H GUSTAVO Administration Ibuprofen 600 mg 10/06/23 08:25 Ibuprofen 600 Mg Tablet PO Q6H PRN Pain Rated 1-3 Levothyroxine Sodium 25 mcg 10/06/23 06:30 10/06/23 06:05 Levothyroxine Sodium 25 Mcg Tablet PO 25 mcg DAILY@0630 GUSTAVO Administration Morphine Sulfate 2 mg 10/06/23 08:19 Morphine Sulfate (*Crx) 2 Mg/Ml Inj IV PUSH Q2H PRN Pain Rated 7-10 Potassium Chloride 40 meq 10/06/23 09:00 Potassium Chloride 20 Meq Packet (For Liquid) PO DAILY GUSTAVO Tramadol HCl 50 mg 10/06/23 08:17 Tramadol Hcl (*Crx) 50 Mg Tablet PO Q4H PRN Pain Rated 4-6 Radiology Results: ITS Impressions Abdomen/Pelvis CT 10/02/23 20:43 IMPRESSION: Mild esophagitis/gastritis. Acute sigmoid diverticulitis, complicated by contained perforation. Cystitis versus reactive inflammation from the adjacent diverticulitis. No definite fistulous tract identified. Correlate with urinalysis. Labs Labs: Laboratory Results - last 24 hr 10/05/23 10/06/23 05:49 06:20 WBC 4.9 RBC 3.06 L Hgb 9.3 L Hct 28.5 L MCV 93.1 MCH 30.4 MCHC 32.6 RDW 12.4 Plt Count 193 MPV 11.9 H Sodium 140 Potassium 3.5 Chlori
[2023-10-06] MEDS: POTASSIUM CHLORIDE 20 MEQ PACKET (FOR LIQUID) 40 MEQ PO (08:48)
[2023-10-06] MEDS: FAMOTIDINE 20 MG TABLET PO ×2 (08:55→22:23)
[2023-10-06] MEDS: ENOXAPARIN 40 MG/0.4 ML SYRINGE SUB-Q (08:55)
--- NOTE | 2023-10-06 12:38 | PM.IMPN ---
Progress Note: A&P Assessment and Plan (1) Memory impairment: Code(s): R41.3 - Other amnesia Status: Chronic Assessment and Plan: Order delirium panel b12 tsh folate thiamine, esr Can consult Neurology for memory impairment TSH is high will start low dose levothyroxine Pt explained that she will need to follow in PCP for rpt TSH in 4 weeks time (2) Perforation of sigmoid colon due to diverticulitis: Code(s): K57.20 - Diverticulitis of large intestine with perforation and abscess without bleeding Status: Acute Assessment and Plan: Patient presented with lower quadrant abdominal pain; she has had no prior abdominal surgeries and has no significant past medical history CT a/p showed acute sigmoid diverticulitis with contained perforation. No organized abscess seen on CT Surgery consulted, continue conservative management WBC is NL now Prelim blood culture shows NGTD She has no peritoneal signs on exam Continue IV Zosyn and IV PPI Pain control as necessary PT/OT watch cbc and BMP Nutrition consulted for dietary advice Pt tolerating clear liquid diet Hopeful DC roger am Subjective Date/time seen: 10/06/23 12:38 Interval history: Patient sitting up in her chair this morning. She reports sudden increase in abdominal pressure and swelling that is worse when she is laying down. States it feels like there is too much fluid in her abdomen and it has moved up toward her chest so it difficult to catch her breath when she was laying flat. Her breathing and pain improved when she sat up in her chair. She denies nausea or vomiting. Patient also denies chest pain or urinary symptoms. Pt admitted for diverticulitis with perforation ct shows no abscess, pt having some abdominal pain and bloating improved since admission. Family also concerned about his memory declining over past few months. Pt seen by surgery continue current care, conservative management with IV fluids and IV abx. Pt doing better today sitting up in the bed no complaints of abdominal pain tolerating clear liquid diet Review of Systems Review of Systems: Abdominal discomfort resolved All systems reviewed & are unremarkable except as noted in HPI and below (Subjective) Exam Const: General: comfortable and no acute distress Other: A&O x3. Accompanied by spouse HENMT: Mouth: Yes dry mucous membranes Eyes: Pupils: Equal, round and reactive pupils present Neck: Neck: supple Resp: Effort & Inspection: normal respiratory effort Auscultation: clear to auscultation bilaterally Cardio: Rate: regular rate Rhythm: regular rhythm GI: Inspection: non-distended Auscultation: normal bowel sounds Neuro: Cranial nerves: Yes Equal, round and reactive pupils present Extrem: General: no edema Objective Data Vital Signs Vital Signs: Vital Signs - 24 hr 10/05/23 14:00 10/05/23 20:00 10/05/23 21:02 Temperature 36.6 C 36.8 C Pulse Rate 61 57 L Respiratory Rate 18 20 Blood Pressure 118/61 135/66 Pulse Oximetry 100 99 Oxygen Delivery Room Air 10/06/23 05:20 10/06/23 09:00 Temperature 36.9 C Pulse Rate 57 L Respiratory Rate 20 Blood Pressure 141/71 H Pulse Oximetry 96 Oxygen Delivery Room Air Intake/Output Intake/Output: Intake & Output 10/03/23 10/04/23 10/05/23 10/06/23 23:59 23:59 23:59 23:59 Intake Total 2900 4220 2548 318 Output Total 200 100 Balance 2700 4120 2548 318 Meds/Results Medications: Active Medications Generic Name Dose Route Start Last Admin Trade Name Moisésq PRN Reason Stop Dose Admin Enoxaparin Sodium 40 mg 10/03/23 09:00 10/06/23 08:55 Enoxaparin 40 Mg/0.4 Ml Syringe SUB-Q 40 mg DAILY GUSTAVO Administration Famotidine 20 mg 10/06/23 09:00 10/06/23 08:55 Famotidine 20 Mg Tablet PO 20 mg Q12HR GUSTAVO Administration Piperacillin/Tazobactam/Dextrose 3.375 gm in 50 mls @ 100 mls/hr 10/03/23 03:00 10/06/23 09:19 Zosyn 3.3
--- NOTE | 2023-10-06 13:08 | WPDNEUROPN ---
Progress Note: A&P Assessment and Plan (1) Memory impairment: Code(s): R41.3 - Other amnesia Status: Chronic (2) Perforation of sigmoid colon due to diverticulitis: Code(s): K57.20 - Diverticulitis of large intestine with perforation and abscess without bleeding Status: Acute Plan Most likely mild metabolic encephalopathy showing improvement patient has had mild perforation of the bowel for BC is being seen by the surgery. A serum B12 folic acid levels were within normal range. On bedside memory test she seems to be doing fairly well and has I would suggest that if there is a concern about like to see her for follow-up in my office in 6 weeks time. Time Spent With Patient Time with patient: less than 15 minutes Subjective Date/time seen: 10/06/23 13:08 Interval history: Patient admitted with abdominal pain and was noted to have some tendency to get mixed up. Dr. Mckoy has seen her. I noted that she is doing much better and in fact she did working at [employer] prior to getting sick. She feels that the abdomen problem has been going on for a while and she was told that sometimes the infection can also lead to be getting mixed up. She lives with the . The patient is right-handed. She had no difficulty with activity the daily living. Her TSH was found to be slightly high at 8.0 and be treated for the same. Her hemoglobin is also low at 9.3. Exam Narrative: She appears in fair spirits. No aphasia or dysarthria. Examination mental status and memory appeared within acceptable normal limits. Normal motor strength in the limbs. No involuntary movements. Objective Data Vital Signs Vital Signs: Vital Signs - 24 hr 10/05/23 14:00 10/05/23 20:00 10/05/23 21:02 Temperature 36.6 C 36.8 C Pulse Rate 61 57 L Respiratory Rate 18 20 Blood Pressure 118/61 135/66 Pulse Oximetry 100 99 Oxygen Delivery Room Air 10/06/23 05:20 10/06/23 09:00 Temperature 36.9 C Pulse Rate 57 L Respiratory Rate 20 Blood Pressure 141/71 H Pulse Oximetry 96 Oxygen Delivery Room Air Intake/Output Intake/Output: Intake & Output 10/03/23 10/04/23 10/05/23 10/06/23 23:59 23:59 23:59 23:59 Intake Total 2900 4220 2548 318 Output Total 200 100 Balance 2700 4120 2548 318 Meds/Results Medications: Active Medications Generic Name Dose Route Start Last Admin Trade Name Freq PRN Reason Stop Dose Admin Enoxaparin Sodium 40 mg 10/03/23 09:00 10/06/23 08:55 Enoxaparin 40 Mg/0.4 Ml Syringe SUB-Q 40 mg DAILY GUSTAVO Administration Famotidine 20 mg 10/06/23 09:00 10/06/23 08:55 Famotidine 20 Mg Tablet PO 20 mg Q12HR GUSTAVO Administration Piperacillin/Tazobactam/Dextrose 3.375 gm in 50 mls @ 100 mls/hr 10/03/23 03:00 10/06/23 09:19 Zosyn 3.375 Gm/Ns 50 Ml IVPB Infused Q6H GUSTAVO Infusion Ibuprofen 600 mg 10/06/23 08:25 Ibuprofen 600 Mg Tablet PO Q6H PRN Pain Rated 1-3 Levothyroxine Sodium 25 mcg 10/06/23 06:30 10/06/23 06:05 Levothyroxine Sodium 25 Mcg Tablet PO 25 mcg DAILY@0630 GUSTAVO Administration Morphine Sulfate 2 mg 10/06/23 08:19 Morphine Sulfate (*Crx) 2 Mg/Ml Inj IV PUSH Q2H PRN Pain Rated 7-10 Potassium Chloride 40 meq 10/06/23 09:00 10/06/23 08:48 Potassium Chloride 20 Meq Packet (For Liquid) PO 40 meq DAILY GUSTAVO Administration Tramadol HCl 50 mg 10/06/23 08:17 Tramadol Hcl (*Crx) 50 Mg Tablet PO Q4H PRN Pain Rated 4-6 Radiology Results: ITS Impressions Abdomen/Pelvis CT 10/02/23 20:43 IMPRESSION: Mild esophagitis/gastritis. Acute sigmoid diverticulitis, complicated by contained perforation. Cystitis versus reactive inflammation from the adjacent diverticulitis. No definite fistulous tract identified. Correlate with urinalysis. Labs Labs: Laboratory Results - last 24 hr 10/06/23 06:20 WBC 4.9 RBC 3.06 L Hgb 9.3 L Hct 28.5 L MCV 93.1 MCH
[2023-10-06 14:00] VITALS: BP 131/60; PULSE 62; RESP 18; TEMP 36.5; O2SAT 100
--- NOTE | 2023-10-06 14:13 | PCDIET ---
Pt was educated on a low fiber diet on 10/05/23. Followed up today for an further questions. Pt reports no questions or concerns, has handout on table.
[2023-10-06 20:00] VITALS: O2SAT 100
[2023-10-06 20:35] VITALS: BP 148/60; PULSE 50; RESP 18; TEMP 36.6; O2SAT 97
[2023-10-07] MEDS: PIPERACILLN/TAZ 3.375GM/NS50ML 3.375 GM/50 ML BAG IVPB ×2 (02:11→09:16)
[2023-10-07 05:05] VITALS: BP 125/68; PULSE 58; RESP 16; TEMP 36.6; O2SAT 94
[2023-10-07] MEDS: LEVOTHYROXINE SODIUM 25 MCG TABLET PO (05:53)
[2023-10-07 06:24] LABS: Hematocrit 31.6 % (37.0-47.0); Hemoglobin 10.5 g/dL (12.0-15.0); Mean Corpuscular HGB Conc 33.2 g/dl (32-36); Mean Corpuscular Hemoglobin 30.4 pg (26-34); Mean Corpuscular Volume 91.6 fl (80-100); Mean Platelet Volume 11.9 fl (7.4-10.4); Platelet Count Result 232 k/mm3 (150-375); Red Blood Count 3.45 M/mm3 (4.2-5.4); Red Cell Distribution Width 12.1 % (11.5-14.5); White Blood Count 7.9 K/mm3 (4.5-10.0)
[2023-10-07 06:48] LABS: Anion Gap 9 mmol/L (8-16); Blood Urea Nitrogen 5 mg/dL (7-17); Calcium 9.2 mg/dL (8.4-10.2); Carbon Dioxide 26 mmol/L (22-30); Chloride 108 mmol/L (98-107); Estimated CRCL calculation 63 ml/min; Estimated Glomerular Filt Rate > 60; Glucose 88 mg/dL (65-110); Potassium 3.4 mmol/L (3.4-5.0); Sodium 143 mmol/L (137-145)
--- NOTE | 2023-10-07 08:21 | PM.PNGS ---
Progress Note: A&P Assessment and Plan (1) Perforation of sigmoid colon due to diverticulitis: Code(s): K57.20 - Diverticulitis of large intestine with perforation and abscess without bleeding Status: Acute Assessment and Plan: Much improved. Okay to discharge from my standpoint. Needs 3 more days of Augmentin. Stay on low-fiber diet. I will see her in the office in 2 weeks. She will need a colonoscopy in 4-6 weeks. (2) Hypothyroidism (acquired): Code(s): E03.9 - Hypothyroidism, unspecified Status: Acute Assessment and Plan: Already seems to be better with initiation of thyroid supplement. Post discharge treatment per hospitalist. Subjective Subjective Date/Time Seen: 10/07/23 08:21 Patient reports: feels better, pain is less, tolerating a regular diet (Low-fiber diet), bowel movement and afebrile Review of Systems Review of Systems: All systems reviewed & are unremarkable except as noted in HPI and below (HPI) Exam Const: General: comfortable and no acute distress Orientation/consciousness: patient oriented x3 GI: Inspection: normal to inspection, no edema, non-distended and scaphoid GI Palp: Yes Soft to palpation, No Tenderness to palpation present (GI), No Guarding due to palpation present (GI) and No Rebound tenderness present Auscultation: normal bowel sounds Neuro: General: patient oriented x3 and no focal motor deficits Extrem: General: no calf tenderness and no edema Psych: Affect: normal affect Insight: Good insight present (Psych) Judgement: Good judgement present (Psych) Objective Data Vital Signs Vital Signs: Vital Signs - 24 hr 10/06/23 09:00 10/06/23 14:00 10/06/23 20:00 Temperature 36.5 C Pulse Rate 62 Respiratory Rate 18 Blood Pressure 131/60 Pulse Oximetry 100 100 Oxygen Delivery Room Air Room Air 10/06/23 20:35 10/07/23 05:05 Temperature 36.6 C 36.6 C Pulse Rate 50 L 58 L Respiratory Rate 18 16 Blood Pressure 148/60 H 125/68 Pulse Oximetry 97 94 Oxygen Delivery Intake/Output Intake/Output: Intake & Output 10/04/23 10/05/23 10/06/23 10/07/23 23:59 23:59 23:59 23:59 Intake Total 4220 2548 778 150 Output Total 100 Balance 4120 2548 778 150 Meds/Results Medications: Active Medications Generic Name Dose Route Start Last Admin Trade Name Freq PRN Reason Stop Dose Admin Enoxaparin Sodium 40 mg 10/03/23 09:00 10/06/23 08:55 Enoxaparin 40 Mg/0.4 Ml Syringe SUB-Q 40 mg DAILY GUSTAVO Administration Famotidine 20 mg 10/06/23 09:00 10/06/23 22:23 Famotidine 20 Mg Tablet PO 20 mg Q12HR GUSTAVO Administration Piperacillin/Tazobactam/Dextrose 3.375 gm in 50 mls @ 100 mls/hr 10/03/23 03:00 10/07/23 02:41 Zosyn 3.375 Gm/Ns 50 Ml IVPB Infused Q6H GUSTAVO Infusion Ibuprofen 600 mg 10/06/23 08:25 Ibuprofen 600 Mg Tablet PO Q6H PRN Pain Rated 1-3 Levothyroxine Sodium 25 mcg 10/06/23 06:30 10/07/23 05:53 Levothyroxine Sodium 25 Mcg Tablet PO 25 mcg DAILY@0630 GUSTAVO Administration Morphine Sulfate 2 mg 10/06/23 08:19 Morphine Sulfate (*Crx) 2 Mg/Ml Inj IV PUSH Q2H PRN Pain Rated 7-10 Potassium Chloride 40 meq 10/06/23 09:00 10/06/23 08:48 Potassium Chloride 20 Meq Packet (For Liquid) PO 40 meq DAILY GUSTAVO Administration Tramadol HCl 50 mg 10/06/23 08:17 Tramadol Hcl (*Crx) 50 Mg Tablet PO Q4H PRN Pain Rated 4-6 Radiology Results: ITS Impressions Abdomen/Pelvis CT 10/02/23 20:43 IMPRESSION: Mild esophagitis/gastritis. Acute sigmoid diverticulitis, complicated by contained perforation. Cystitis versus reactive inflammation from the adjacent diverticulitis. No definite fistulous tract identified. Correlate with urinalysis. Labs Labs: Laboratory Results - last 24 hr 10/07/23 05:31 WBC 7.9 RBC 3.45 L Hgb 10.5 L Hct 31.6 L MCV 91.6 MCH 30.4 MCHC 33.2 RDW 12.1 Plt Count 232 MPV 11.
--- NOTE | 2023-10-07 08:38 | WPDNEUROPN ---
Progress Note: A&P Assessment and Plan (1) Memory impairment: Code(s): R41.3 - Other amnesia Status: Chronic (2) Hypothyroidism (acquired): Code(s): E03.9 - Hypothyroidism, unspecified Status: Acute Plan Ms. Whitman is a year old female with a history of hypothyroidism currently admitted due to complications related to diverticulitis. There were concerns regarding memory issues over the past few months. Work-up significant for elevated TSH suggesting untreated hypothyroidism. This could be contributing to her memory decline. Patient and her partner however feel that her memory issues are not significant. Symptoms appear to be mild overall, and mental status exam today was not concerning. As part of work-up, recommend obtain MRI brain w/o contrast, which can be done as outpatient. Follow-up with Dr. Alberto in Neurology clinic in about 8 weeks for repeat evaluation. Subjective Date/time seen: 10/07/23 08:38 Interval history: Ms. Whitman is a year old female with a history of hypothyroidism who presented due to abdominal pain. She was ultimately admitted for diverticulitis with perforation. She was admitted and has been receiving conservative management with IV fluids and IV antibiotics. Family reported expressed concerns about her memory declining over the past few months. Neurology was consulted for further evaluation of memory concerns. B12, TSH, folate were obtained. B12 and folate were normal. TSH was elevated to 8.060. Seems like surgery plans on discharging her today. Review of Systems Review of Systems: All systems reviewed & are unremarkable except as noted in HPI and below Exam Const: General: comfortable and no acute distress HENMT: Mouth: Yes moist mucous membranes Eyes: Pupils: Equal, round and reactive pupils present EOM: EOMs intact bilaterally Resp: Effort & Inspection: normal respiratory effort Skin: General skin exam: normal color Neuro: Other: AOx3, Able to spell WORLD backwards. Pupils equal and reactive bilaterally, EOMI, face symmetric, facial sensation intact, tongue protrudes midline, Strength 5/5 throughout. Sensation symmetric bilaterally. FNF normal bilaterally. Language comprehension and fluency intact. Gait deferred. Extrem: General: normal to inspection Psych: Mental Status: mental status grossly normal Affect: normal affect Objective Data Vital Signs Vital Signs: Vital Signs - 24 hr 10/06/23 09:00 10/06/23 14:00 10/06/23 20:00 Temperature 36.5 C Pulse Rate 62 Respiratory Rate 18 Blood Pressure 131/60 Pulse Oximetry 100 100 Oxygen Delivery Room Air Room Air 10/06/23 20:35 10/07/23 05:05 Temperature 36.6 C 36.6 C Pulse Rate 50 L 58 L Respiratory Rate 18 16 Blood Pressure 148/60 H 125/68 Pulse Oximetry 97 94 Oxygen Delivery Intake/Output Intake/Output: Intake & Output 10/04/23 10/05/23 10/06/23 10/07/23 23:59 23:59 23:59 23:59 Intake Total 4220 2548 778 150 Output Total 100 Balance 4120 2548 778 150 Meds/Results Medications: Active Medications Generic Name Dose Route Start Last Admin Trade Name Freq PRN Reason Stop Dose Admin Enoxaparin Sodium 40 mg 10/03/23 09:00 10/06/23 08:55 Enoxaparin 40 Mg/0.4 Ml Syringe SUB-Q 40 mg DAILY GUSTAVO Administration Famotidine 20 mg 10/06/23 09:00 10/06/23 22:23 Famotidine 20 Mg Tablet PO 20 mg Q12HR GUSTAVO Administration Piperacillin/Tazobactam/Dextrose 3.375 gm in 50 mls @ 100 mls/hr 10/03/23 03:00 10/07/23 02:41 Zosyn 3.375 Gm/Ns 50 Ml IVPB Infused Q6H GUSTAVO Infusion Ibuprofen 600 mg 10/06/23 08:25 Ibuprofen 600 Mg Tablet PO Q6H PRN Pain Rated 1-3 Levothyroxine Sodium 25 mcg 10/06/23 06:30 10/07/23 05:53 Levothyroxine Sodium 25 Mcg Tablet PO 25 mcg DAILY@0630 GUSTAVO Administration Morphine Sulfate 2 mg 10/06/23 08:19 Morphine Sulfate (*Crx) 2 Mg/Ml Inj IV PUSH Q2H PRN Pain Rated 7-10 Sun
[2023-10-07] MEDS: FAMOTIDINE 20 MG TABLET PO (09:16)
[2023-10-07] MEDS: POTASSIUM CHLORIDE 20 MEQ PACKET (FOR LIQUID) 40 MEQ PO (09:16)
--- NOTE | 2023-10-07 10:05 | PM.IMPN ---
Progress Note: A&P Assessment and Plan (1) Memory impairment: Code(s): R41.3 - Other amnesia Status: Chronic Assessment and Plan: Order delirium panel b12 tsh folate thiamine, esr Can consult Neurology for memory impairment TSH is high will start low dose levothyroxine Pt explained that she will need to follow in PCP for rpt TSH in 4 weeks time (2) Perforation of sigmoid colon due to diverticulitis: Code(s): K57.20 - Diverticulitis of large intestine with perforation and abscess without bleeding Status: Acute Assessment and Plan: Patient presented with lower quadrant abdominal pain; she has had no prior abdominal surgeries and has no significant past medical history CT a/p showed acute sigmoid diverticulitis with contained perforation. No organized abscess seen on CT Surgery consulted, continue conservative management WBC is NL now Prelim blood culture shows NGTD She has no peritoneal signs on exam Continue IV Zosyn and IV PPI Pain control as necessary PT/OT watch cbc and BMP Nutrition consulted for dietary advice Pt tolerating clear liquid diet Hopeful DC roger am Subjective Date/time seen: 10/07/23 10:06 Interval history: Patient sitting up in her chair this morning. She reports sudden increase in abdominal pressure and swelling that is worse when she is laying down. States it feels like there is too much fluid in her abdomen and it has moved up toward her chest so it difficult to catch her breath when she was laying flat. Her breathing and pain improved when she sat up in her chair. She denies nausea or vomiting. Patient also denies chest pain or urinary symptoms. Pt admitted for diverticulitis with perforation ct shows no abscess, pt having some abdominal pain and bloating improved since admission. Family also concerned about his memory declining over past few months. Pt seen by surgery continue current care, conservative management with IV fluids and IV abx. Pt doing better today sitting up in the bed no complaints of abdominal pain tolerating clear liquid diet Review of Systems Review of Systems: All systems reviewed & are unremarkable except as noted in HPI and below (Subjective) Objective Data Vital Signs Vital Signs: Vital Signs - 24 hr 10/06/23 14:00 10/06/23 20:00 10/06/23 20:35 Temperature 97.7 F 98 F Pulse Rate 62 50 L Respiratory Rate 18 18 Blood Pressure 131/60 148/60 H Pulse Oximetry 100 100 97 Oxygen Delivery Room Air 10/07/23 05:05 10/07/23 08:00 Temperature 98 F Pulse Rate 58 L Respiratory Rate 16 Blood Pressure 125/68 Pulse Oximetry 94 Oxygen Delivery Room Air Intake/Output Intake/Output: Intake & Output 10/04/23 10/05/23 10/06/23 10/07/23 23:59 23:59 23:59 23:59 Intake Total 4220 2548 778 680 Output Total 100 Balance 4120 2548 778 680 Meds/Results Medications: Active Medications Generic Name Dose Route Start Last Admin Trade Name Freq PRN Reason Stop Dose Admin Enoxaparin Sodium 40 mg 10/03/23 09:00 10/07/23 09:15 Enoxaparin 40 Mg/0.4 Ml Syringe SUB-Q Not Given DAILY GUSTAVO Famotidine 20 mg 10/06/23 09:00 10/07/23 09:16 Famotidine 20 Mg Tablet PO 20 mg Q12HR GUSTAVO Administration Piperacillin/Tazobactam/Dextrose 3.375 gm in 50 mls @ 100 mls/hr 10/03/23 03:00 10/07/23 09:46 Zosyn 3.375 Gm/Ns 50 Ml IVPB Infused Q6H GSUTAVO Infusion Ibuprofen 600 mg 10/06/23 08:25 Ibuprofen 600 Mg Tablet PO Q6H PRN Pain Rated 1-3 Levothyroxine Sodium 25 mcg 10/06/23 06:30 10/07/23 05:53 Levothyroxine Sodium 25 Mcg Tablet PO 25 mcg DAILY@0630 GUSTAVO Administration Morphine Sulfate 2 mg 10/06/23 08:19 Morphine Sulfate (*Crx) 2 Mg/Ml Inj IV PUSH Q2H PRN Pain Rated 7-10 Potassium Chloride 40 meq 10/06/23 09:00 10/07/23 09:16 Potassium Chloride 20 Meq Packet (For Liquid) PO 40 meq DAILY GUSTAVO Administration Tramadol HCl 50 mg 10/06/23
--- NOTE | 2023-10-07 10:30 | PM.DS ---
DS: Admitting Diagnosis Discharge Date 10/07/2023 Admitting Diagnosis Abdominal pain DS: Discharge Diagnosis Discharge Diagnosis (1) Memory impairment: Code(s): R41.3 - Other amnesia Status: Chronic (2) Perforation of sigmoid colon due to diverticulitis: Code(s): K57.20 - Diverticulitis of large intestine with perforation and abscess without bleeding Status: Acute DS: Summary Hospital Course Hospital Course: Patient presented with left lower quadrant abdominal pain. No prior abdominal surgeries are significant past medical history. CT abdomen pelvis showed acute sigmoid diverticulitis with contained perforation. No organized abscess seen on CT scan. General surgery was consulted and underwent IV antibiotics. Leukocytosis is resolved antibiotics were switched to oral. Okay per General surgery see and follow up as an outpatient basis. Os copy as an outpatient basis in 4-6 weeks. There were some concerns about memory loss and had consulted Neurology for this. B12 folic acid normal TSH is mildly high and was started on low-dose levothyroxine. Need S in 4 weeks time. On low-fiber diet and tolerating well without any pain. Time Spent with Patient Time attestation: Total time spent providing and/or coordinating discharge services: 35 minutes Exam Narrative: Const:?? General: comfortab le and no acute di stress? Other: A& O x3.? Accompanied by spouse ? HENMT:?? Mouth: Yes dry muc ous membranes Eyes:?? Pupils: Equal, rou nd and reactive pu pils present Neck:?? Neck: supple Resp:?? Effort & Inspectio n: normal respirat ory effort? Auscul tation: clear to a uscultation bilate rally Cardio:?? Rate: regular rate ? Rhythm: regular rhythm GI:?? Inspection: non-di stended? Auscultat ion: normal bowel sounds Neuro:?? Cranial nerves: Ye s Equal, round and reactive pupils p resent Extrem:?? General: no edema DS: Data Data Completed and Pending Labs on day of discharge: Labs from last 24 hours 10/07/23 05:31 WBC 7.9 RBC 3.45 L Hgb 10.5 L Hct 31.6 L MCV 91.6 MCH 30.4 MCHC 33.2 RDW 12.1 Plt Count 232 MPV 11.9 H Sodium 143 Potassium 3.4 Chloride 108 H Carbon Dioxide 26 Anion Gap 9 BUN 5 L Creatinine 0.70 Estim Creat Clear Calc 63 Estimated GFR > 60 Glucose 88 Calcium 9.2 Preliminary micro results at discharge 10/02/23 21:37 Blood Culture - Preliminary Blood 10/02/23 21:37 Blood Culture - Preliminary Blood Imaging Radiologist's impression: ITS Impressions Abdomen/Pelvis CT 10/02/23 20:43 IMPRESSION: Mild esophagitis/gastritis. Acute sigmoid diverticulitis, complicated by contained perforation. Cystitis versus reactive inflammation from the adjacent diverticulitis. No definite fistulous tract identified. Correlate with urinalysis. Discharge Plan Discharge Attending physician on discharge: Dilip Glaser Consulting providers: Goldy Hooks; Naun Orr; Lam Carvajal Discharging Clinician: Dilip Glaser Anticipated Discharge Date/Time: 10/07/23 10:32 Patient Disposition: Home, Self-Care Activity: as tolerated Diet: low fiber Discharge Instructions: Increase activity as tolerated Okay to drive Stay on low-fiber diet until you see Dr. Orr for follow-up Finish oral antibiotics Take pain medication only when necessary, not to pre-empt pain Patient Instructions: Antibiotic Form, Low Fiber
== END 2023-10-07 11:20 | disposition home or self-care (01) | DRG 391 ==
LOC: ANHED 21:25 → ANH3MEDSUR 23:16
PROVIDERS: Surgery; Admitting Provider General Practice; Emergency Provider Emergency Medicine; Visit Provider General Practice
DX: K57.20 Diverticulitis of large intestine with perforation and abscess without bleeding (principal); G93.41 Metabolic encephalopathy; R41.3 Other amnesia; E03.9 Hypothyroidism, unspecified
CPT/HCPCS: 36415; 74177; 80048; 80053; 81001; 82607; 82746; 83690; 83735; 84443; 85025; 85027; 85652; 87040; 96361; 96365; 96366; 96367; 96372; 96375; 96376; 99285; A9270; C9113; G0378; J1650; J1741; J2270; J2405; J2543; J3480; J7030; Q9967

== ENCOUNTER 2023-12-05 10:25 | Outpatient (CLI) | payer OTHER, SELFPAY ==
[2023-12-05 20:26] LABS: Total Triiodothyronine (T3) 1.29 NG/ML (0.97-1.69)
[2023-12-08 07:48] LABS: Thyroglobulin 42.1 ng/mL; Thyroglobulin Antibodies <1 IU/mL (< or = 1); Thyroid Peroxidase Antibodies 58 IU/mL (<9)
== END 2023-12-05 10:26 | disposition home or self-care (01) ==
PROVIDERS: PCP Emergency Medicine; Visit Provider Emergency Medicine
DX: E03.9 Hypothyroidism, unspecified (principal)
CPT/HCPCS: 36415; 84432; 84439; 84443; 84480; 86376; 86800

== ENCOUNTER 2023-12-13 00:46 | Day surgery (SDC) | payer OTHER, SELFPAY ==
[2023-11-29 10:38] VITALS: BMI 24.9
[2023-12-13 11:45] VITALS: BP 126/69; PULSE 87; RESP 18; TEMP 36.3; O2SAT 100
[2023-12-13] MEDS: LACTATED RINGERS 1,000 ML 150 ML IV CONT (11:57)
--- NOTE | 2023-12-13 12:38 | P.PNAN_ITS ---
Anes - Initial Pre Proc Eval Procedure: Operation Date: 12/13/23 13:00 Proposed Procedures p Colonoscopy - Garrett Coleman MD Date/Time: 12/13/23 12:38 Surgeon: Garrett Coleman MD Pre Op Diagnosis: Diverticulitis w/perforation and abscess w/o bleed Patient Data Age: 63 Gender: F Height: 1.63 m Weight: 65.3 kg Last Vital Signs Temp 97.4 F L 12/13/23 11:45 Pulse 87 12/13/23 11:45 Resp 18 12/13/23 11:45 BP 126/69 12/13/23 11:45 Pulse Ox 100 12/13/23 11:45 O2 Del Method Room Air 12/13/23 11:45 Allergies Allergy/AdvReac Type Severity Reaction Status Date / Time No Known Allergies Allergy Verified 12/13/23 11:44 Home Medications Medication Instructions Recorded Confirmed Type ondansetron HCl 4 mg tablet 4 mg PO Q6H PRN Nausea And 11/29/23 Rx Vomiting #4 tabs Patient hx anesthesia problems: none Family hx anesthesia problems: none Results Review: All pre-operative results and documents have been reviewed as part of the pre- operative evaluation. [facility] Family History Family History Other Patient denies significant medical history Social History Social History Smoking status: Never smoker Alcohol intake: current Substance use: never Substance use type: does not use Do You Feel Safe in your Home?: Yes Lack of Transportation: No Lack of Food: Never True Current Housing: I Have Housing Concerned About Future Housing: No Difficulty Paying Gas/Electric Bills: No Difficulty Paying for Meds: No Currently Unemployed: No Education: High School Diploma/GED Difficulty w/ Childcare or Family Care: No Living arrangements: with family Occupation/Education: occupation Additional occupation/education comments: [employer] Gender identity (if verbalized by the patient): Female Sexual Orientation (if Verbalized by the Patient): Straight or Heterosexual Spiritual care concerns: No Anes - Eval Final PreProcedure Day of Procedure 12/13/23 12:38 Patient weight: normal Heart: regular rate and rhythm Lungs: clear to auscultation Airway: Mallampati scale class II Neurological: alert and oriented Last oral intake: >/= 8 hours ASA classification: II Emergent: no Anesthetic plan: proceed Anesthesia type and monitoring: general GIVS and standard monitoring Results Review: All pre-operative results and documents have been reviewed as part of the pre- operative evaluation. Informed Consent: The patient's anesthetic plan and its attendant risks and benefits were discussed with the patient/family/POA. Questions were solicited and answers provided to the satisfaction of the patient/family/POA.
--- NOTE | 2023-12-13 12:49 | PM.HPGS ---
History of Present Illness History of Present Illness Consent: Risks, benefits, and alternatives have been discussed and questions answered. Patient agrees to proceed with procedure. Chief complaint: Diverticulitis w/perforation and abscess w/o bleed Narrative: Ele Whitman is a 63 year old female here for first colonoscopy, had diverticulitis earlier this year treated medically Review of Systems Review of Systems: All systems reviewed & are unremarkable except as noted in HPI and below PMFSH Past Medical History Medical History (Updated 12/13/23 @ 12:50 by Garrett Coleman MD) History of diverticulitis of colon Family History Family History Other Patient denies significant medical history Social History Social History Smoking status: Never smoker Alcohol intake: current Substance use: never Substance use type: does not use Do You Feel Safe in your Home?: Yes Lack of Transportation: No Lack of Food: Never True Current Housing: I Have Housing Concerned About Future Housing: No Difficulty Paying Gas/Electric Bills: No Difficulty Paying for Meds: No Currently Unemployed: No Education: High School Diploma/GED Difficulty w/ Childcare or Family Care: No Living arrangements: with family Occupation/Education: occupation Additional occupation/education comments: [employer] Gender identity (if verbalized by the patient): Female Sexual Orientation (if Verbalized by the Patient): Straight or Heterosexual Spiritual care concerns: No Meds Home Medications and Allergies Home Medications Medication Instructions Recorded Confirmed Type ondansetron HCl 4 mg tablet 4 mg PO Q6H PRN Nausea And 11/29/23 Rx Vomiting #4 tabs Allergies Allergy/AdvReac Type Severity Reaction Status Date / Time No Known Allergies Allergy Verified 12/13/23 11:44 Vital Signs Vital Signs - 24 hr 12/13/23 11:45 Temperature 97.4 F L Pulse Rate 87 Respiratory Rate 18 Blood Pressure 126/69 Pulse Oximetry 100 Oxygen Delivery Room Air Exam Const: General: comfortable and no acute distress HENMT: Face/Nose/Sinus: Normal nares present Eyes: General: appearance normal, both eyes and all related structures Neck: Neck: no JVD Resp: Auscultation: clear to auscultation bilaterally Cardio: Rate: regular rate Rhythm: regular rhythm GI: Inspection: non-distended GI Palp: Yes Soft to palpation Skin: General skin exam: normal color Neuro: General: gait normal Speech: normal speech Extrem: General: normal to inspection Psych: Mental Status: mental status grossly normal Assessment and Plan Assessment and plan (1) History of diverticulitis of colon: Code(s): Z87.19 - Personal history of other diseases of the digestive system Status: Acute Assessment and Plan: colonoscopy
[2023-12-13 13:09] VITALS: BP 109/61; PULSE 75; RESP 19; O2SAT 99
[2023-12-13 13:19] VITALS: BP 107/68; PULSE 60; RESP 15; O2SAT 100
[2023-12-13 13:29] VITALS: BP 103/71; PULSE 68; RESP 19; O2SAT 100
== END 2023-12-13 13:48 | disposition home or self-care (01) ==
PROVIDERS: PCP Emergency Medicine; Referring Provider Surgery; Visit Provider Internal Medicine Gastroenterology
PROC: 0DJD8ZZ Inspection of Lower Intestinal Tract, Via Natural or Artificial Opening Endoscopic (ICD-10-PCS; CPT 45378; principal; 2023-12-13 13:00)
DX: Z12.11 Encounter for screening for malignant neoplasm of colon (principal); K64.8 Other hemorrhoids; K57.30 Diverticulosis of large intestine without perforation or abscess without bleeding; Z87.19 Personal history of other diseases of the digestive system
CPT/HCPCS: 45378; J2704; J7120

== ENCOUNTER 2024-03-28 15:54 | Outpatient (CLI) | payer OTHER, SELFPAY ==
[2024-03-28 19:09] LABS: Basophils Percent Auto 0.5 % (0.2-1.2); Eosinophils Absolute Auto 0.1 K/mm3 (0-0.3); Eosinophils Percent Auto 1.2 % (0-4.4); Hematocrit 36.3 % (37.0-47.0); Hemoglobin 12.4 g/dL (12.0-15.0); Immature Granulocyte Absolute 0.02 K/mm3 (0.00-0.031); Immature Granulocyte Percent A 0.3 % (0-0.5); Lymphocytes Percent Auto 19.8 % (18.3-44.2); Mean Corpuscular HGB Conc 34.2 g/dl (32-36); Mean Corpuscular Hemoglobin 30.7 pg (26-34); Mean Corpuscular Volume 89.9 fl (80-100); Mean Platelet Volume 11.4 fl (7.4-10.4); Monocytes Absolute Auto 0.6 K/mm3 (0.1-0.6); Monocytes Percent Auto 7.3 % (2.6-8.5); Neutrophils Absolute Auto 5.4 K/mm3 (1.3-6.7); Neutrophils Percent Auto 70.9 % (45.5-73.1); Platelet Count Result 263 k/mm3 (150-375); Red Blood Count 4.04 M/mm3 (4.2-5.4); Red Cell Distribution Width 12.1 % (11.5-14.5); White Blood Count 7.6 K/mm3 (4.5-10.0)
[2024-03-28 20:21] LABS: Alanine Aminotransferase 14 U/L (6-35); Albumin Level 4.4 g/dL (3.5-5.1); Alkaline Phosphatase 71 U/L (38-126); Anion Gap 7 mmol/L (4-12); Aspartate Amino Transferase 29 U/L (14-36); Bilirubin,Total 0.5 mg/dL (0.2-1.3); Blood Urea Nitrogen 17 mg/dL (7-17); Calcium 9.3 mg/dL (8.4-10.2); Carbon Dioxide 31 mmol/L (22-30); Chloride 102 mmol/L (98-107); Estimated Glomerular Filt Rate > 60; Glucose 89 mg/dL (65-110); Lipase 58 U/L (23-300); Potassium 3.8 mmol/L (3.4-5.0); Sodium 140 mmol/L (137-145)
== END 2024-03-28 15:55 | disposition home or self-care (01) ==
LOC: ANHGOSHLAB 15:56
PROVIDERS: PCP Emergency Medicine; Visit Provider Emergency Medicine
DX: R53.83 Other fatigue (principal); R10.31 Right lower quadrant pain
CPT/HCPCS: 36415; 80053; 83690; 84443; 85025

== ENCOUNTER 2024-03-29 08:47 | Outpatient (CLI) | payer OTHER, SELFPAY ==
--- NOTE | ~2024-03-29 | US_ITS ---
EXAMINATION: US_ABDRLQ_US DATE: 03/29/2024 08:58 INDICATION: Right lower quadrant pain TECHNIQUE: Multiple grayscale and Doppler ultrasound images of the region of concern at the right low er quadrant of the abdomen were obtained. COMPARISON: None FINDINGS: There is a normal appearance to the anterior abdominal wall in the region of concern. Loops of bowel are seen between the anterior abdominal wall and the more posterior iliopsoas muscle. No abnormal mas s or fluid collections identified. The appendix and right ovary are unable to be identified. IMPRESSION: 1. Normal study. The appendix and right ovary were unable to be visualized. Reviewed, dictated and finalized at location A.
== END 2024-03-29 08:48 ==
LOC: GOSHIMG 08:48
PROVIDERS: PCP Emergency Medicine; Visit Provider Emergency Medicine
DX: R10.31 Right lower quadrant pain (principal)
CPT/HCPCS: 76705